=== PATIENT | female | born 1965 | race Two or more races ===

== ENCOUNTER 2019-08-05 07:38 | Outpatient (CLI) | payer OTHER ==
[~2019-08-05 07:38] MED LIST: HYZAAR 100-121 UDTAB
== END 2019-08-05 07:39 | disposition home or self-care (01) ==
LOC: SONOGRAMA 07:38
DX: E04.1 Nontoxic single thyroid nodule (principal)

== ENCOUNTER 2019-11-21 08:54 | Outpatient (CLI) | payer OTHER | END 2019-11-21 09:00 | disposition home or self-care (01) | LOC: SONOGRAMA 08:54 | PROVIDERS: ATTEND Pathology Anatomic Pathology | DX: E04.2 Nontoxic multinodular goiter (principal) ==

== ENCOUNTER 2019-12-12 06:36 | Day surgery (SDC) | payer OTHER | END 2019-12-12 12:50 | disposition home or self-care (01) | LOC: AMB-ENDOS 06:36 | PROVIDERS: ATTEND Surgery | DX: D12.4 Benign neoplasm of descending colon (principal); D12.5 Benign neoplasm of sigmoid colon ==

== ENCOUNTER 2021-01-21 08:44 | Outpatient (CLI) | payer OTHER | END 2021-01-21 08:49 | disposition home or self-care (01) | LOC: SONOGRAMA 08:44 | PROVIDERS: ATTEND Pathology Anatomic Pathology & Clinical Pathology | DX: E07.89 Other specified disorders of thyroid (principal); D34 Benign neoplasm of thyroid gland; E04.8 Other specified nontoxic goiter ==